=== PATIENT | male | born 1960 | race Caucasian/White ===

== ENCOUNTER 2017-07-14 08:29 | Day surgery (SDC) | payer BC ==
[~2017-07-14] VITALS: Ht 180.3 cm; Wt 100.3 kg
[~2017-07-14 08:29] MED LIST: CYCL10 PO; GABA600 PO; HYDACE25S PR; IBUP800 PO; LISI20 PO; LOVA40; OMEP20ER; OMEP20ER PO; ONDA8 PO; OXYACE5T; OXYACE5T PO; PREG75; PROTONIX
[2017-07-14] MEDS ORDERED: GLUC500 (08:53)
[2017-07-14] MEDS ORDERED: METTREX2.5 (08:53)
[2017-07-14] MEDS ORDERED: FOLI1 (08:53)
[2017-07-14] MEDS ORDERED: BUPR150ER (08:53)
== END 2017-07-14 12:32 | disposition home or self-care (01) ==
LOC: ORSCSDS 08:29
PROVIDERS: Podiatrist Foot & Ankle Surgery
PROC: 0QPN04Z Removal of Internal Fixation Device from Right Metatarsal, Open Approach (ICD-10-PCS; principal; 2017-07-14 10:00)
PROC: 0QSN04Z Reposition Right Metatarsal with Internal Fixation Device, Open Approach (ICD-10-PCS; principal; 2017-07-14 10:00)
DX: M20.11 Hallux valgus (acquired), right foot (principal); Z47.2 Encounter for removal of internal fixation device; I10 Essential (primary) hypertension; K21.9 Gastro-esophageal reflux disease without esophagitis; Z79.899 Other long term (current) drug therapy
CPT/HCPCS: C1713; J0690; J1100; J1885; J2250; J2405; J3010

== ENCOUNTER 2017-11-09 10:25 | Emergency (ER) | payer BC ==
[~2017-11-09] VITALS: Ht 182.9 cm; Wt 99.8 kg
[~2017-11-09 10:25] MED LIST changes: +BUPR150ER; +FOLI1; +GLUC500; +METTREX2.5
== END 2017-11-09 12:40 | disposition home or self-care (01) ==
LOC: ER 10:25
DX: S81.812A Laceration without foreign body, left lower leg, initial encounter (principal); Z79.899 Other long term (current) drug therapy; I10 Essential (primary) hypertension; K21.9 Gastro-esophageal reflux disease without esophagitis; W22.8XXA Striking against or struck by other objects, initial encounter
CPT/HCPCS: 12002; 90471; 90714; 99283

== ENCOUNTER 2018-06-02 08:28 | Day surgery (SDC) | payer BC ==
[~2018-06-02] VITALS: Ht 182.9 cm; Wt 104.1 kg
[~2018-06-02 08:28] MED LIST changes: +Budeprion Xl300 MG PO; +FISH OIL 1,0001 EAC1; +FISH OIL 1,0001 EAC1 PO; -FOLI1; +FOLI1 PO; -GLUC500; +GLUC500 PO; -METTREX2.5; +METTREX2.5 PO; +MULTI VITAMIN1 EACH PO; +OMEPRAZOLE MAGN20 MG PO; +Viagra100 MG PO
[2018-06-02] MEDS ORDERED: TREMFYA100 MG/1 M (09:04)
--- NOTE | 2018-06-02 09:25 | NUR ---
06/02/18 0925 Yuly Etienne PRE OP TEACHING COMPLETED AT THIS TIME. QUESTIONS ANSWERED AND PT DENIES FURTHER QUESTIONS. MARCELLE AT BEDSIDE.
== END 2018-06-02 10:48 | disposition home or self-care (01) ==
LOC: ORSCSDS 08:28
PROVIDERS: Internal Medicine Gastroenterology
PROC: 0DBK8ZX Excision of Ascending Colon, Via Natural or Artificial Opening Endoscopic, Diagnostic (ICD-10-PCS; principal; 2018-06-02 09:45)
PROC: 0DBN8ZX Excision of Sigmoid Colon, Via Natural or Artificial Opening Endoscopic, Diagnostic (ICD-10-PCS; principal; 2018-06-02 09:45)
PROC: 0DBL8ZX Excision of Transverse Colon, Via Natural or Artificial Opening Endoscopic, Diagnostic (ICD-10-PCS; principal; 2018-06-02 09:45)
DX: Z12.11 Encounter for screening for malignant neoplasm of colon (principal); D12.2 Benign neoplasm of ascending colon; D12.3 Benign neoplasm of transverse colon; K63.5 Polyp of colon; K64.8 Other hemorrhoids; Z86.010 Personal history of colon polyps; I10 Essential (primary) hypertension; E66.01 Morbid (severe) obesity due to excess calories; Z68.31 Body mass index [BMI] 31.0-31.9, adult; K21.9 Gastro-esophageal reflux disease without esophagitis; Z79.899 Other long term (current) drug therapy
CPT/HCPCS: 88305; J7120

== ENCOUNTER → 2019-05-29 | Outpatient (CLI) | payer BC ==
[~2019-05-29] MED LIST changes: +TREMFYA100 MG/1 M
== END | disposition home or self-care (01) ==
LOC: LAB SHORT 08:34 → PLD 08:34
DX: C44.1292 Squamous cell carcinoma of skin of left lower eyelid, including canthus (principal)
CPT/HCPCS: 88305

== ENCOUNTER 2020-09-27 16:52 | Observation (INO) | payer OTHER ==
[~2020-09-27] VITALS: Ht 180.3 cm; Wt 97.1 kg
[2020-09-27 17:27] LABS: BASOPHILS ABSOLUTE AUTO 0.03 K/mm3 (0.00-0.23); BASOPHILS PERCENT AUTO 0 % (0-2); EOSINOPHILS ABSOLUTE AUTO 0.04 K/mm3 (0.00-0.68); EOSINOPHILS PERCENT AUTO 0 % (0-6); Hematocrit 46.4 % (37.0-53.0); Hemoglobin 16.2 g/dL (13.5-17.5); IMMATURE GRAN ABSOLUTE AUTO 0.06 K/mm3 (0.00-0.10); IMMATURE GRAN PERCENT AUTO 0 % (0-1); LYMPHOCYTES ABSOLUTE AUTO 1.46 K/mm3 (0.84-5.20); LYMPHOCYTES PERCENT AUTO 10 % (21-46); MONOCYTES ABSOLUTE AUTO 0.94 K/mm3 (0.16-1.47); MONOCYTES PERCENT AUTO 6 % (4-13); Mean Corpuscular HGB 30.1 pg (26.0-34.0); Mean Corpuscular HGB Conc 34.9 g/dL (31.5-36.5); Mean Corpuscular Volume 86 fL (80-100); Mean Platelet Volume 9.1 fL (9.1-12.4); NEUTROPHILS ABSOLUTE AUTO 12.88 K/mm3 (1.96-9.15); NEUTROPHILS PERCENT AUTO 84 % (41-73); Platelet Count 230 K/mm3 (150-400); Red Blood Cell Count 5.38 M/mm3 (4.30-5.90); White Blood Cell Count 15.41 K/mm3 (4.00-11.30)
[2020-09-27 17:44] LABS: International Normalized Ratio 0.98; Prothrombin Time Results 10.6 Sec (9.7-11.5)
[2020-09-27 17:48] LABS: Alanine Aminotransfer (ALT/SGP 26 U/L (12-78); Albumin, Blood 4.1 g/dL (3.4-5.0); Albumin/Globulin Ratio 1.2 (0.8-1.8); Alk Phos 93 U/L (50-136); Anion Gap 5 mmol/L (6-16); Aspartate Aminotrans (AST/SGOT 17 U/L (12-37); Bilirubin, Total 0.8 mg/dL (0.1-1.0); Blood Urea Nitrogen 16 mg/dL (8-24); Bun/Creatinine Ratio 19.3 (12.0-20.0); CO2, Blood 25 mmol/L (21-32); Chloride, Blood 109 mmol/L (98-108); Creatinine, Blood 0.83 mg/dL (0.60-1.20); Globulin, Blood 3.4 g/dL (2.2-4.0); Glomerular Filtration Rate >60 (60-); Glucose, Blood 108 mg/dL (70-99); Potassium, Blood 3.8 mmol/L (3.5-5.5); Sodium, Blood 139 mmol/L (136-145); Total Protein, Blood 7.5 g/dL (6.4-8.2)
[2020-09-27 18:22] LABS: Source, Urine Catheter
[2020-09-27 18:30] LABS: Bilirubin, Urine Neg (Neg); Blood, Urine 2+ (Neg); Glucose Qualitative, Urine Neg (Neg); Ketones, Urine Neg (Neg); Leukocyte Esterase, Urine 2+ (Neg); Nitrite, Urine Pos (Neg); Protein, Urine 2+ (Neg); Specific Gravity, Urine 1.015 (1.003-1.022); Urobilinogen, Urine 1+ (Normal); pH, Urine 6.5 (5.0-8.0)
[2020-09-27 18:49] LABS: Appearance, Urine Hazy (Clear); Color, Urine Yellow (P-Yellow)
[2020-09-27 18:51] LABS: Bacteria Many /hpf; Mucus Mod (0-Heavy); Red Blood Cells, Urine 0-2 /hpf (0-2); Squamous Epithelial Cells Few /hpf (Few)
[2020-09-27] MEDS ORDERED: NAPR500 PO (22:55)
--- NOTE | 2020-09-28 04:30 | NUR ---
SHIFT SUMMARY PT NEW ED ADMIT THIS EVENING. R SIDED SCROTAL SWELLING AND REDNESS. PICTURES TAKEN AND PLACED IN CHART. PT DENIES ANY PAIN. CLEAR LIQUID DIET SINCE ADMISSION. VITAL SIGNS STABLE. PT AFEBRILE. PT SLEPT MUCH OF THE NIGHT. WILL CONTINUE TO MONITOR.
[2020-09-28 05:38] LABS: BASOPHILS ABSOLUTE AUTO 0.03 K/mm3 (0.00-0.23); BASOPHILS PERCENT AUTO 0 % (0-2); EOSINOPHILS PERCENT AUTO 1 % (0-6); Hematocrit 44.3 % (37.0-53.0); Hemoglobin 15.1 g/dL (13.5-17.5); IMMATURE GRAN ABSOLUTE AUTO 0.07 K/mm3 (0.00-0.10); IMMATURE GRAN PERCENT AUTO 1 % (0-1); LYMPHOCYTES ABSOLUTE AUTO 1.39 K/mm3 (0.84-5.20); LYMPHOCYTES PERCENT AUTO 11 % (21-46); MONOCYTES ABSOLUTE AUTO 0.84 K/mm3 (0.16-1.47); MONOCYTES PERCENT AUTO 6 % (4-13); Mean Corpuscular HGB 29.8 pg (26.0-34.0); Mean Corpuscular HGB Conc 34.1 g/dL (31.5-36.5); Mean Corpuscular Volume 88 fL (80-100); Mean Platelet Volume 9.1 fL (9.1-12.4); NEUTROPHILS ABSOLUTE AUTO 10.81 K/mm3 (1.96-9.15); NEUTROPHILS PERCENT AUTO 82 % (41-73); Platelet Count 223 K/mm3 (150-400); RDW Coefficient Variation 12.2 % (11.7-14.2); RDW Standard Deviation 39.2 fL (35.1-46.3); Red Blood Cell Count 5.06 M/mm3 (4.30-5.90); White Blood Cell Count 13.24 K/mm3 (4.00-11.30)
[2020-09-28 06:00] LABS: Anion Gap 4 mmol/L (6-16); Blood Urea Nitrogen 14 mg/dL (8-24); Bun/Creatinine Ratio 18.4 (12.0-20.0); CO2, Blood 28 mmol/L (21-32); Calcium, Blood 8.6 mg/dL (8.5-10.1); Chloride, Blood 106 mmol/L (98-108); Creatinine, Blood 0.76 mg/dL (0.60-1.20); Glomerular Filtration Rate >60 (60-); Glucose, Blood 101 mg/dL (70-99); Potassium, Blood 3.8 mmol/L (3.5-5.5); Sodium, Blood 138 mmol/L (136-145)
--- NOTE | 2020-09-28 06:30 | NUR ---
COVID SWAB PCR COLLECTED AND DROPPED OFF AT LAB.
[2020-09-28 07:24] LABS: SARS-Cov-2 (COVID-19) PCR, MMC NEGATIVE (NEGATIVE)
[2020-09-28] MEDS ORDERED: CLIN300 PO (12:25)
--- NOTE | 2020-09-28 14:13 | NUR ---
0915 DR OH AT BEDSIDE I&D UNDER LOCAL. MEDICATED WITH FENT 50MG PRE PROCEDURE. PT TOLERATED PROCEDURE WELL. DR AMES NU GAUZE WICK. PT INSTRUCTED IN CARE AND TO DISCONTINUE WIC TOMORROW. TO F/U WITH DR CHRISTENSEN IN ONE WEEK AND COMPLETE ABX COURSE.
--- NOTE | 2020-09-28 14:19 | NUR ---
PT DISCHARGED 1245 WITH DC INSTRUCTIONS. PICKING UP ABX AT [facility] ON [address]. MEDICATED FOR PAIN PRE DISCHARGE. W/C ESCORT OUT TO PRIVATE CAR. SENT HOME WITH BELONGINGS.
[2020-10-01] MEDS ORDERED: SULFAMETHOXAZO1 EAC1 PO (09:44)
[2020-10-01] MEDS ORDERED: LORCET 5-325 M1 EACH PO (09:46)
== END 2020-09-28 12:50 | disposition home or self-care (01) ==
LOC: ER 16:52 → MEDS 16:53
PROVIDERS: Physician Assistant; ADMIT Surgery
DX: L02.215 Cutaneous abscess of perineum (principal); N49.2 Inflammatory disorders of scrotum; B95.62 Methicillin resistant Staphylococcus aureus infection as the cause of diseases classified elsewhere; I10 Essential (primary) hypertension; K21.9 Gastro-esophageal reflux disease without esophagitis; Z98.1 Arthrodesis status; Z20.822 Contact with and (suspected) exposure to COVID-19
CPT/HCPCS: 36415; 72193; 80048; 80053; 81001; 83605; 85025; 85610; 85730; 87040; 87070; 87075; 87077; 87086; 87147; 87186; 87205; 93005; 93010; 96365-59; 96366; 96367; 96368; 96375; 96376; 99284-25; G0378; J2543; J3010; J3370; J7050; J7120; Q9967; U0004

== ENCOUNTER 2020-10-02 05:56 | Day surgery (SDC) | payer OTHER ==
[~2020-10-02] VITALS: Ht 182.9 cm; Wt 98.9 kg
[~2020-10-02 05:56] MED LIST changes: +CLIN300 PO; +LORCET 5-325 M1 EACH PO; +NAPR500 PO; +SULFAMETHOXAZO1 EAC1 PO
--- NOTE | 2020-10-02 07:15 | NUR ---
Ambulatory in Day Surgery History, Chart, Medications and Allergies reviewed before start of procedure. Lungs clear T/O to Auscultation. Patient confirms NPO status and agrees with scheduled surgery. + VOID. GAUZE REMOVED FROM SITE, DRAINAGE NOTED.
--- NOTE | 2020-10-02 07:58 | NUR ---
10/02/20 0758 KUMARCHERIE 1 GRAM IV STARTED IN PRE OP PRIOR TO PROCEDURE PER DR HOPPER
--- NOTE | 2020-10-02 09:07 | NUR ---
PT DENIES PAIN p PROCEDURE. TOLERATES PO FLUIDS s NAUSEA. DRESSING INTACT, MINIMAL DRAINAGE NOTED ON ABD PAD. DRAIN INTACT. IV DC'D, CATH INTACT AND PRESSURE DRESSING APPLIED. GIVEN DC INSTRUCTIONS. PT VERBALIZES AN UNDERSTANDING. NO QUESTIONS. OTD IN NAD VIA WC TO SAFE RIDE HOME.
== END 2020-10-02 22:52 | disposition home or self-care (01) ==
LOC: ORSCMMR 05:56 → ORD 07:30 → ORSCMMR 22:52
PROVIDERS: Surgery
PROC: 0V95XZZ Drainage of Scrotum, External Approach (ICD-10-PCS; principal; 2020-10-02 07:30)
DX: N49.2 Inflammatory disorders of scrotum (principal); K21.9 Gastro-esophageal reflux disease without esophagitis; Z79.899 Other long term (current) drug therapy
CPT/HCPCS: J1100; J1885; J2405; J2704; J3010; J3370; J7120

== ENCOUNTER → 2021-07-15 | Outpatient (CLI) | payer OTHER | END | disposition home or self-care (01) | LOC: LAB SHORT 08:15 | DX: L08.0 Pyoderma (principal) | CPT/HCPCS: 87070 ==

== ENCOUNTER 2023-04-08 08:07 | Emergency (ER) | payer OTHER ==
[~2023-04-08] VITALS: Ht 180.3 cm; Wt 98.4 kg
[2023-04-08 08:44] LABS: BASOPHILS ABSOLUTE AUTO 0.03 K/mm3 (0.00-0.23); BASOPHILS PERCENT AUTO 0 % (0-2); EOSINOPHILS ABSOLUTE AUTO 0.17 K/mm3 (0.00-0.68); EOSINOPHILS PERCENT AUTO 3 % (0-6); Hematocrit 48.7 % (37.0-53.0); Hemoglobin 16.3 g/dL (13.5-17.5); IMMATURE GRAN ABSOLUTE AUTO 0.01 K/mm3 (0.00-0.10); IMMATURE GRAN PERCENT AUTO 0 % (0-1); LYMPHOCYTES PERCENT AUTO 28 % (21-46); MONOCYTES ABSOLUTE AUTO 0.38 K/mm3 (0.16-1.47); MONOCYTES PERCENT AUTO 6 % (4-13); Mean Corpuscular HGB 29.8 pg (26.0-34.0); Mean Corpuscular HGB Conc 33.5 g/dL (31.5-36.5); Mean Corpuscular Volume 89 fL (80-100); Mean Platelet Volume 9.1 fL (9.1-12.4); NEUTROPHILS ABSOLUTE AUTO 4.19 K/mm3 (1.96-9.15); NEUTROPHILS PERCENT AUTO 63 % (41-73); Platelet Count 219 K/mm3 (150-400); RDW Coefficient Variation 12.3 % (11.7-14.2); RDW Standard Deviation 40.5 fL (35.1-46.3); Red Blood Cell Count 5.47 M/mm3 (4.30-5.90); White Blood Cell Count 6.68 K/mm3 (4.00-11.30)
[2023-04-08] MEDS ORDERED: BUPROPION XL150 M1 PO (08:44)
[2023-04-08] MEDS ORDERED: DUTASTERIDE0.5 M3 PO (08:44)
[2023-04-08] MEDS ORDERED: MELATONIN5 M1 PO (08:45)
[2023-04-08] MEDS ORDERED: VITAMIN D350 MC3 PO (08:45)
[2023-04-08] MEDS ORDERED: ZINC15 PO (08:45)
[2023-04-08] MEDS ORDERED: ASCO500 PO (08:46)
[2023-04-08] MEDS ORDERED: Vitamin B Comple1 EA PO (08:46)
[2023-04-08 09:13] LABS: Bun/Creatinine Ratio 20.6 (12.0-20.0); Calcium, Blood 8.6 mg/dL (8.5-10.1); Creatinine, Blood 0.87 mg/dL (0.60-1.20); Magnesium, Blood 2.3 mg/dL (1.6-2.4); Potassium, Blood 4.3 mmol/L (3.5-5.5)
[2023-04-08 10:10] VITALS: BP 123/97
== END 2023-04-08 10:43 | disposition home or self-care (01) ==
LOC: ER 08:07
PROVIDERS: Student in an Organized Health Care Education/Training Program
DX: R00.2 Palpitations (principal); R00.0 Tachycardia, unspecified; R42 Dizziness and giddiness; Z79.899 Other long term (current) drug therapy; I10 Essential (primary) hypertension; K21.9 Gastro-esophageal reflux disease without esophagitis
CPT/HCPCS: 71046; 80048; 83735; 85025; 93005; 93010; 93246; 96360; 99285-25; J7030

== ENCOUNTER 2023-04-16 12:59 | Emergency (ER) | payer OTHER ==
[~2023-04-16] VITALS: Ht 180.3 cm; Wt 98.4 kg
[~2023-04-16 12:59] MED LIST changes: +ASCO500 PO; +BUPROPION XL150 M1 PO; +DUTASTERIDE0.5 M3 PO; +MELATONIN5 M1 PO; +VITAMIN D350 MC3 PO; +Vitamin B Comple1 EA PO; +ZINC15 PO
[2023-04-16 14:01] LABS: BASOPHILS ABSOLUTE AUTO 0.04 K/mm3 (0.00-0.23); BASOPHILS PERCENT AUTO 1 % (0-2); EOSINOPHILS ABSOLUTE AUTO 0.17 K/mm3 (0.00-0.68); EOSINOPHILS PERCENT AUTO 2 % (0-6); Hematocrit 51.1 % (37.0-53.0); Hemoglobin 17.7 g/dL (13.5-17.5); IMMATURE GRAN ABSOLUTE AUTO 0.01 K/mm3 (0.00-0.10); IMMATURE GRAN PERCENT AUTO 0 % (0-1); LYMPHOCYTES ABSOLUTE AUTO 2.92 K/mm3 (0.84-5.20); LYMPHOCYTES PERCENT AUTO 40 % (21-46); MONOCYTES PERCENT AUTO 7 % (4-13); Mean Corpuscular HGB 30.2 pg (26.0-34.0); Mean Corpuscular HGB Conc 34.6 g/dL (31.5-36.5); Mean Corpuscular Volume 87 fL (80-100); Mean Platelet Volume 9.5 fL (9.1-12.4); NEUTROPHILS ABSOLUTE AUTO 3.69 K/mm3 (1.96-9.15); NEUTROPHILS PERCENT AUTO 51 % (41-73); Platelet Count 273 K/mm3 (150-400); RDW Coefficient Variation 12.1 % (11.7-14.2); Red Blood Cell Count 5.86 M/mm3 (4.30-5.90); White Blood Cell Count 7.33 K/mm3 (4.00-11.30)
[2023-04-16 14:16] LABS: Albumin/Globulin Ratio 1.1 (0.8-1.8); Bilirubin, Total 0.8 mg/dL (0.1-1.0); Bun/Creatinine Ratio 25.3 (12.0-20.0); Calcium, Blood 9.1 mg/dL (8.5-10.1); Creatinine, Blood 0.83 mg/dL (0.60-1.20); Globulin, Blood 3.5 g/dL (2.2-4.0); Potassium, Blood 3.9 mmol/L (3.5-5.5); Total Protein, Blood 7.5 g/dL (6.4-8.2)
[2023-04-16 14:29] LABS: Magnesium, Blood 1.9 mg/dL (1.6-2.4)
[2023-04-16 15:00] VITALS: BP 117/97
== END 2023-04-16 15:31 | disposition home or self-care (01) ==
LOC: ER 12:59
PROVIDERS: Physician Assistant
DX: R00.0 Tachycardia, unspecified (principal); R00.2 Palpitations; R07.89 Other chest pain; R42 Dizziness and giddiness; R55 Syncope and collapse; I10 Essential (primary) hypertension; Z79.899 Other long term (current) drug therapy
CPT/HCPCS: 80053; 83690; 83735; 83880; 84484; 85025; 93005; 93010; 99285-25

== ENCOUNTER 2024-08-21 11:20 | Emergency (ER) | payer OTHER ==
[~2024-08-21] VITALS: Ht 180.3 cm; Wt 105.7 kg
[~2024-08-21 11:20] MED LIST changes: -MECL25 PO
[2024-08-21 12:12] LABS: BASOPHILS ABSOLUTE AUTO 0.06 K/mm3 (0.00-0.23); BASOPHILS PERCENT AUTO 1 % (0-2); EOSINOPHILS ABSOLUTE AUTO 0.18 K/mm3 (0.00-0.68); EOSINOPHILS PERCENT AUTO 3 % (0-6); Hemoglobin 17.1 g/dL (13.5-17.5); IMMATURE GRAN ABSOLUTE AUTO 0.02 K/mm3 (0.00-0.10); IMMATURE GRAN PERCENT AUTO 0 % (0-1); LYMPHOCYTES ABSOLUTE AUTO 2.31 K/mm3 (0.84-5.20); LYMPHOCYTES PERCENT AUTO 32 % (21-46); MONOCYTES ABSOLUTE AUTO 0.43 K/mm3 (0.16-1.47); MONOCYTES PERCENT AUTO 6 % (4-13); Mean Corpuscular HGB 29.4 pg (26.0-34.0); Mean Corpuscular HGB Conc 34.2 g/dL (31.5-36.5); Mean Corpuscular Volume 86 fL (80-100); Mean Platelet Volume 8.6 fL (9.1-12.4); NEUTROPHILS ABSOLUTE AUTO 4.32 K/mm3 (1.96-9.15); NEUTROPHILS PERCENT AUTO 59 % (41-73); Platelet Count 272 K/mm3 (150-400); RDW Coefficient Variation 12.6 % (11.7-14.2); RDW Standard Deviation 39.5 fL (35.1-46.3); Red Blood Cell Count 5.81 M/mm3 (4.30-5.90); White Blood Cell Count 7.32 K/mm3 (4.00-11.30)
[2024-08-21 12:46] LABS: Albumin, Blood 4.4 g/dL (3.4-5.0); Albumin/Globulin Ratio 1.3 (0.8-1.8); Bilirubin, Total 0.5 mg/dL (0.1-1.0); Bun/Creatinine Ratio 25.8 (12.0-20.0); Calcium, Blood 9.6 mg/dL (8.5-10.1); Creatinine, Blood 0.78 mg/dL (0.60-1.20); Globulin, Blood 3.5 g/dL (2.2-4.0); Potassium, Blood 4.4 mmol/L (3.5-5.5); Total Protein, Blood 7.9 g/dL (6.4-8.2)
[2024-08-21] MEDS ORDERED: MECL25 PO (15:01)
[2024-08-21 15:03] VITALS: BP 139/90
== END 2024-08-21 15:11 | disposition home or self-care (01) ==
LOC: ER 11:20
PROVIDERS: Emergency Medicine
DX: R42 Dizziness and giddiness (principal); R53.83 Other fatigue; R03.0 Elevated blood-pressure reading, without diagnosis of hypertension; Z79.899 Other long term (current) drug therapy; Z79.890 Hormone replacement therapy; Z79.891 Long term (current) use of opiate analgesic
CPT/HCPCS: 80053; 84484; 85025; 93005; 93010; 99284-25

== ENCOUNTER → 2024-08-21 | Outpatient (CLI) | payer OTHER ==
[~2024-08-21] MED LIST changes: +ALEVE220 MG; +CENTRUM SILVER1 EAC2; +MECL25 PO; +MELA3
[2024-08-21 13:07] LABS: BASOPHILS ABSOLUTE AUTO 0.05 K/mm3 (0.00-0.23); BASOPHILS PERCENT AUTO 1 % (0-2); EOSINOPHILS ABSOLUTE AUTO 0.21 K/mm3 (0.00-0.68); EOSINOPHILS PERCENT AUTO 3 % (0-6); Hemoglobin 17.5 g/dL (13.5-17.5); IMMATURE GRAN ABSOLUTE AUTO 0.02 K/mm3 (0.00-0.10); IMMATURE GRAN PERCENT AUTO 0 % (0-1); LYMPHOCYTES ABSOLUTE AUTO 2.46 K/mm3 (0.84-5.20); LYMPHOCYTES PERCENT AUTO 29 % (21-46); MONOCYTES ABSOLUTE AUTO 0.52 K/mm3 (0.16-1.47); MONOCYTES PERCENT AUTO 6 % (4-13); Mean Corpuscular HGB 28.8 pg (26.0-34.0); Mean Corpuscular HGB Conc 33.7 g/dL (31.5-36.5); Mean Corpuscular Volume 86 fL (80-100); Mean Platelet Volume 9.1 fL (9.1-12.4); NEUTROPHILS ABSOLUTE AUTO 5.19 K/mm3 (1.96-9.15); NEUTROPHILS PERCENT AUTO 61 % (41-73); Platelet Count 291 K/mm3 (150-400); RDW Coefficient Variation 12.5 % (11.7-14.2); RDW Standard Deviation 38.9 fL (35.1-46.3); Red Blood Cell Count 6.07 M/mm3 (4.30-5.90); White Blood Cell Count 8.45 K/mm3 (4.00-11.30)
[2024-08-21 13:30] LABS: Albumin, Blood 4.3 g/dL (3.4-5.0); Albumin/Globulin Ratio 1.2 (0.8-1.8); Bilirubin, Total 0.5 mg/dL (0.1-1.0); Bun/Creatinine Ratio 25.1 (12.0-20.0); Calcium, Blood 9.3 mg/dL (8.5-10.1); Creatinine, Blood 0.8 mg/dL (0.60-1.20); Globulin, Blood 3.5 g/dL (2.2-4.0); Potassium, Blood 4.2 mmol/L (3.5-5.5); Thyroid Stimulating Hormone 1.3 uIU/mL (0.360-4.800); Total Protein, Blood 7.8 g/dL (6.4-8.2)
== END ==
LOC: LAB 09:15 → LAB SHORT 09:15
PROVIDERS: Physician Assistant
DX: R42 Dizziness and giddiness (principal); R05.1 Acute cough; R07.9 Chest pain, unspecified
CPT/HCPCS: 80053; 84443; 85025